=== PATIENT | female | born 2000 ===

== ENCOUNTER 2025-03-05 11:23 | Observation (INO) | payer OTHER ==
[~2025-03-05] VITALS: Ht 170.2 cm; Wt 71.3 kg
[2025-03-05 12:17] LABS: BASOPHILS ABSOLUTE AUTO 0.03 K/mm3 (0.00-0.23); BASOPHILS PERCENT AUTO 0 % (0-2); EOSINOPHILS ABSOLUTE AUTO 0.03 K/mm3 (0.00-0.68); EOSINOPHILS PERCENT AUTO 0 % (0-6); Hematocrit 33.8 % (33.0-51.0); Hemoglobin 12.1 g/dL (11.5-16.0); IMMATURE GRAN ABSOLUTE AUTO 0.12 K/mm3 (0.00-0.10); IMMATURE GRAN PERCENT AUTO 1 % (0-1); LYMPHOCYTES ABSOLUTE AUTO 1.64 K/mm3 (0.84-5.20); LYMPHOCYTES PERCENT AUTO 18 % (21-46); MONOCYTES ABSOLUTE AUTO 0.48 K/mm3 (0.16-1.47); MONOCYTES PERCENT AUTO 5 % (4-13); Mean Corpuscular HGB 32.3 pg (26.0-34.0); Mean Corpuscular HGB Conc 35.8 g/dL (31.5-36.5); Mean Corpuscular Volume 90 fL (80-100); Mean Platelet Volume 10.4 fL (9.1-12.4); NEUTROPHILS ABSOLUTE AUTO 7.09 K/mm3 (1.96-9.15); NEUTROPHILS PERCENT AUTO 76 % (41-73); Platelet Count 210 K/mm3 (150-400); RDW Coefficient Variation 12.4 % (11.7-14.2); RDW Standard Deviation 40.3 fL (35.1-46.3); Red Blood Cell Count 3.75 M/mm3 (3.80-5.20); White Blood Cell Count 9.39 K/mm3 (4.00-11.30)
[2025-03-05 13:00] LABS: Source, Urine Clean Catch
[2025-03-05 13:06] LABS: Appearance, Urine Clear (Clear); Bilirubin, Urine Neg (Neg); Blood, Urine Neg (Neg); Glucose Qualitative, Urine Neg (Neg); Ketones, Urine Neg (Neg); Leukocyte Esterase, Urine Neg (Neg); Nitrite, Urine Neg (Neg); Protein, Urine Neg (Neg); Urobilinogen, Urine NORM (Normal)
[2025-03-05 13:08] LABS: Color, Urine Pale Yellow (P-Yellow)
[2025-03-05 13:08] LABS: Albumin/Globulin Ratio 0.7 (0.8-1.8); Bilirubin, Total 0.4 mg/dL (0.1-1.0); Bun/Creatinine Ratio 18.2 (12.0-20.0); Calcium, Blood 8.7 mg/dL (8.5-10.1); Creatinine, Blood 0.44 mg/dL (0.40-1.00); Globulin, Blood 4.1 g/dL (2.2-4.0); Potassium, Blood 3.3 mmol/L (3.5-5.5); Total Protein, Blood 7.1 g/dL (6.4-8.2)
[2025-03-05] MEDS ORDERED: Ondansetron HCl 2 MG / ML 2ML Vial IV ONE (17:20)
[2025-03-05] MEDS ORDERED: Ondansetron HCl 2 MG / ML 2ML Vial IV PRN (17:55)
[2025-03-05 18:18] LABS: Percent Saturation 20.3 % (15.0-50.0)
[2025-03-05 18:34] LABS: Automated CSF WBC Count 0.003 K/mm3 (0-5)
[2025-03-05 18:36] LABS: WBC Count, CSF 3 /mm3 (0-5)
[2025-03-05 18:41] LABS: Appearance, CSF Clear (Clear); Color, CSF No Color (No Color); RBC Count, CSF 3 /mm3 (0-0)
[2025-03-05 18:48] LABS: Appearance, CSF Clear (Clear); Color, CSF No Color (No Color); RBC Count, CSF 0 /mm3 (0-0); WBC Count, CSF 1 /mm3 (0-5)
[2025-03-05] MEDS ORDERED: PredniSONE 20 MG Tab PO SCH (19:00)
[2025-03-05 19:25] LABS: Glucose, CSF 50 mg/dL (40-70)
[2025-03-05] MEDS ORDERED: FERROUS SULFAT325 M3 PO (19:38)
[2025-03-05 19:57] VITALS: BP 114/69
[2025-03-05 22:12] LABS: Cryptococcus Neoformans/Gattii Not Detected (NOT DETECT); Enterovirus Not Detected (NOT DETECT); Escherichia Coli K1 Not Detected (NOT DETECT); Haemophilus Influenza Not Detected (NOT DETECT); Herpes Simplex Virus 1 Not Detected (NOT DETECT); Herpes Simplex Virus 2 Not Detected (NOT DETECT); Human Herpesvirus 6 Not Detected (NOT DETECT); Human Parechovirus Not Detected (NOT DETECT); Listeria Monocytogenes Not Detected (NOT DETECT); Neisseria Meningitidis Not Detected (NOT DETECT); Streptococcus Agalactiae Not Detected (NOT DETECT); Streptococcus Pneumoniae Not Detected (NOT DETECT); Varicella Zoster Virus Not Detected (NOT DETECT)
[2025-03-05 23:11] VITALS: BP 118/76
[2025-03-06 04:10] VITALS: BP 93/54
[2025-03-06 06:14] LABS: BASOPHILS ABSOLUTE AUTO 0.02 K/mm3 (0.00-0.23); BASOPHILS PERCENT AUTO 0 % (0-2); EOSINOPHILS PERCENT AUTO 0 % (0-6); Hematocrit 34.4 % (33.0-51.0); IMMATURE GRAN ABSOLUTE AUTO 0.13 K/mm3 (0.00-0.10); IMMATURE GRAN PERCENT AUTO 1 % (0-1); LYMPHOCYTES ABSOLUTE AUTO 1.54 K/mm3 (0.84-5.20); LYMPHOCYTES PERCENT AUTO 16 % (21-46); MONOCYTES ABSOLUTE AUTO 0.16 K/mm3 (0.16-1.47); MONOCYTES PERCENT AUTO 2 % (4-13); Mean Corpuscular HGB 31.3 pg (26.0-34.0); Mean Corpuscular HGB Conc 34.9 g/dL (31.5-36.5); Mean Corpuscular Volume 90 fL (80-100); Mean Platelet Volume 10.6 fL (9.1-12.4); NEUTROPHILS ABSOLUTE AUTO 7.98 K/mm3 (1.96-9.15); NEUTROPHILS PERCENT AUTO 81 % (41-73); Platelet Count 190 K/mm3 (150-400); RDW Coefficient Variation 12.3 % (11.7-14.2); RDW Standard Deviation 40.4 fL (35.1-46.3); Red Blood Cell Count 3.83 M/mm3 (3.80-5.20); White Blood Cell Count 9.83 K/mm3 (4.00-11.30)
[2025-03-06 06:43] LABS: Albumin, Blood 2.9 g/dL (3.4-5.0); Albumin/Globulin Ratio 0.7 (0.8-1.8); Bilirubin, Total 0.4 mg/dL (0.1-1.0); Bun/Creatinine Ratio 17.6 (12.0-20.0); Calcium, Blood 9.3 mg/dL (8.5-10.1); Creatinine, Blood 0.46 mg/dL (0.40-1.00); Globulin, Blood 4.1 g/dL (2.2-4.0); Potassium, Blood 3.7 mmol/L (3.5-5.5)
[2025-03-06 07:27] VITALS: BP 99/68
[2025-03-06 09:00] VITALS: BP 119/77
[2025-03-06] MEDS ORDERED: Potassium Chloride 10 Meq Tablet SA PO SCH (09:00)
[2025-03-06] MEDS ORDERED: PRED20 PO (11:36)
--- NOTE | 2025-03-06 11:52 | NUR ---
SUMMARY: PT REPORTS RIGHT SIDE FACIAL NUMBNESS IS GONE TODAY. LEFT SIDE PARALYSIS REMAINS RELATIVELY THE SAME. PT IS ABLE TO TALK, CHEW, SWALLOW, AND AMBULATE WITHOUT DIFFICULTY. PT WAS SEEN BY DR LIZ, AND CLEARED. QSHIFT NST'S WERE ORDERED IF PT WOULD HAVE STAYED INPATIENT. DR HANNAH, RESIDENT, AND DR MUNSON, ATTENDING SAW PT. PT DIAGNOSED WITH BELLS PALSY. ORDERS TO DISCHARGE, WITH FOLLOW UP PCP AND OB THIS WEEK. PT HAS APPT WITH OB ON THURSDAY. PREDNISONE 60MG, DAILY FOR 6 DAYS SENT IN. PT INSTRUCTED TO TEAM LEADER SURGERY PRESCRIPTION FROM [facility] AND FINISH ALL OF PRESCRIPTION EVEN IF SHE IS FEELING BETTER. PT AND FOB VERBALIZED UNDERSTANDING OF DC INSTRUCTIONS.
[2025-03-08 21:08] LABS: ALBUMIN INDEX 5.7 ratio (0.0-9.0); ALBUMIN,CSF 19 mg/dL (0-35); ALBUMIN,SERUM 3325 mg/dL (3500-5200); CSF IGG SYNTHESIS RATE <0.0 mg/d (<=8.0); CSF IGG/ALBUMIN RATIO 0.16 ratio (0.09-0.25); CSF OLIGOCLONAL BANDS Negative (Negative); IGG INDEX 0.53 ratio (0.28-0.66); IMMUNOGLOBULIN G 988 mg/dL (768-1632); OLIGOCLONAL BANDS NUMBER,CSF 0 Bands (0-1)
== END 2025-03-06 12:03 | disposition home or self-care (01) ==
LOC: ER 11:23 → BC 17:31
PROVIDERS: Emergency Medicine; Physician Assistant; Student in an Organized Health Care Education/Training Program; ADMIT Family Medicine
DX: O99.353 Diseases of the nervous system complicating pregnancy, third trimester (principal); G51.0 Bell's palsy; G58.9 Mononeuropathy, unspecified; Z3A.34 34 weeks gestation of pregnancy; O99.283 Endocrine, nutritional and metabolic diseases complicating pregnancy, third trimester; E87.6 Hypokalemia; O99.013 Anemia complicating pregnancy, third trimester; D50.9 Iron deficiency anemia, unspecified
CPT/HCPCS: 36415; 59025; 62270; 70450; 70551; 76815; 76819; 80053; 81003; 82040; 82042; 82728; 82784; 82945; 83540; 83550; 83735; 83916; 84157; 84702; 85025; 85651; 86141; 87040; 87070; 87205; 87483; 89051; 96374; 96374-59; 99285-25; G0378; J2405; J7512